=== PATIENT | female | born 1950 | race Caucasian/White ===

== ENCOUNTER 2017-01-28 11:14 | Emergency (ER) | payer MEDICAID ==
[~2017-01-28] VITALS: Ht 160 cm; Wt 76.7 kg
[~2017-01-28 11:14] MED LIST: BUPROPION HCL300 MG PO; CYCLOBENZAPRINE10 M1 PO; LISINOPRIL 10MG10 MG PO; OMEPRAZOLE40 MG PO
--- OUTSIDE RECORDS SUMMARY | 2017-01-28 11:23 | External Medical Summary Rpt | CCD ---
Author Author [facility] Organization [employer] Address Unknown Phone Unavailable Purpose Continuity of Care Document - through 2016
--- OUTSIDE RECORDS SUMMARY | 2017-01-28 11:23 | External Medical Summary Rpt | CCD ---
Author Author [facility] Address Unknown Phone Purpose Continuity of Care Document - through 2016
--- OUTSIDE RECORDS SUMMARY | 2017-01-28 11:23 | External Medical Summary Rpt | CCD ---
Demographics Preferred Language Swedish Marital Status Unknown Cheondoism Affiliation Unknown Race Unknown Ethnic Group Unknown Author Author , ELSA HUNTER Address Unknown Phone Immunization No patient found.
--- OUTSIDE RECORDS SUMMARY | 2017-01-28 11:23 | External Medical Summary Rpt | CCD ---
Demographics Preferred Language Italian Marital Status Unknown Hindu Affiliation Unknown Race Unknown Ethnic Group Unknown Author Author , ELSA HUNTER Address Unknown Phone Immunization No patient found.
--- OUTSIDE RECORDS SUMMARY | 2017-01-28 11:23 | External Medical Summary Rpt ---
Author Author [facility] Allen, [facility] Organization [facility] [employer] Address Unknown Phone Unavailable
--- NOTE | 2017-01-28 11:48 | Urgent Treatment Center Report ---
History of Present Issue Date/Time Seen by Provider 01/28/17 1143 Visit Reason Pt arrived:Walked Presenting Problem:PT STATES SHE FELL AT HOME OUTSIDE IN HER YARD, AND INJURED RT HAND, AND WRIST ALONG WITH LEFT FOREARM Location if Accident:Home Onset of symptoms date/time:01/23/1703/30/1200 or onset unknown for: Have you (or family members/close friends) recently traveled outside the [place]? N If Yes, where/when: Have you had exposure to infectious disease within the past month? TB? Other? Specify: Patient states that she was at home last working in her yard when she tripped and fell landing on her right hand and wrist and her left forearm State that she she noticed bruising and had some swelling but the area on her left forearm is now healing and she felt a knot in there State that she is also having pain in her right hand and wrist area when she moves it or tries to bear weight on it. State that her daughter made her come in and get checked ALLERGIES Coded Allergies: NO KNOWN ALLERGIES (12/04/14) Home Medications Reported Medications BUPROPION HCL (Bupropion XL) 300 MG PO DAILY #30 Omeprazole (Omeprazole 40MG) 40 MG PO DAILY #30 Cyclobenzaprine Hcl 10 MG PO DAILY #15 LISINOPRIL (Lisinopril) 10 MG PO DAILY History Medical History General CAD? No Angina: No MT: No Hypertension? Yes Hyperlipidemia? No CHF? No DVT? No PE? No COPD? No Asthma? No Anemia? No GERD? Yes Gastric ulcers? No GI Bleed? No Hernia? No Thyroid Problems? No Hypothyroidism? No CVA? No Seizures? No Diabetes? No Renal Insuffiency? No UTI? No Stones? No BPH? No GB Disease: No Nephritic Syndrome? No Asplenia? No Hepatitis? No Sickle Cell Disease? No Arthritis? No Migraines? No Cataracts? Yes Glaucoma? No MRSA? No HIV? No TB? No Anxiety? No Depression? No Cancer? No More? No Immunization HX Ped.Immunizations UTD No DT/Tetanus [id number] Surgical Hx Previous Surgery?Y KATHERYN CATARACTS REMOVED X3 L RETINA REPAIR Social History Smoking Hx Smoker: Never Smoker Tobacco: No Alcohol Alcohol: No Review of Systems All Other Systems Reviewed and Negative Comment Pain, swelling and light bruising to left forearm and right hand Physical Exam Vital Signs Vital Signs Date Time Temp Pulse Resp B/P Pulse O2 O2 Flow FiO2 Ox Delivery Rate 01/28 1246 98.1 93 20 135/78 100 01/28 1135 98.1 93 20 135/78 100 General Appearance normal appearance, WD/WN, no apparent distress Respiratory Status Yes: trachea midline, chest symmetrical, non tender chest. No: respiratory distress. Lung Sounds bilateral: normal breath sounds, lungs clear. Cardiovascular normal exam, regular rate/rhythm Extremities swelling, Mild swelling and healing bruising noted right hand/wrist and left forearm. Bruising yellowish green in color with small hard area noted in left forearm Neurologic alert, normal exam, oriented x 3 Medical Decision Making LABS/Meds/Orders Pt receiving controlled substance in ED? No Results/Orders Orders Procedure Date/time Status UTC STABILIZE JOINT/AREA 01/28 1231 Active WRIST-3 VIEWS-RT 01/28 1144 Active HAND-RT 3 VIEWS 01/28 1144 Active FOREARM-LT 01/28 1144 Active FOREARM-RT 01/28 UNK Active XRAY/CT/US XRAY/CT/US XRAY forearm, hand, wrist XR interpretation by reviewed by me Xray Results no fracture seen Comment Patiernt informed that radiologist would do official read and if he seen anything different than provider we would call her and inform her of finding Departure Departure Time of Disposition 1214 Disposition DC Home or Self Care(routine) Clinical Impression Primary Impression: Wrist sprain Qualifiers: Encounter type: initial encounter Laterality: right Qualified Code: S63.501A - Unspecified sprain of right wrist, initial encounter Secondary Impressions: Forearm sprain Qualifiers: Encounter type: initial encounter Laterality: left Qualified Code: S63.502A - Unspecified sprain of left wrist, initial encounter Condition STABLE Referrals ROSA ELOMRE (Family) Fredo WEISS,Dilan OLIVO MD, ROBBY GIRON Patient Instructions How To Perform RICE (Rest, Ice, Compress, Elevate) Additional Instructions *RICE, Rest the extremity, Ice 15-20 minutes 3-4 times daily, Compress- wear the lalo wrap as discussed as much as possible to help reduce swelling and pain, Elevate the extremity when at rest *Lalo wrap is for support and help control swelling, use it except in the shower. Be sure that is not to tight but not to loose either *Elevate when resting *Ibuprofen 600-800mg every 6-8 hours as needed for pain an inflammation. If need something more can take Tylenol in between doses of Ibuprofen to help Immediately follow up for new or worsening of symptoms, or no noticeable improvement over the next 3-5 days Discharge Counseling Counseled pt/family regarding diagnosis, test results, medications/RX, home care, follow up needs Prescriptions Current Visit Scripts Ibuprofen (Ibuprofen 800MG) 800 MG PO QIDP PRN pain #30 TAB at 7301
[2017-01-28] MEDS ORDERED: IBUPROFEN800 MG PO (12:16)
[2017-01-28 12:46] VITALS: BP 135/78
--- NOTE | 2017-01-28 15:17 | RADIOLOGY REPORT PS360 ---
FOREARM-RT HISTORY: FALL, PAIN ORDERING PHYSICIAN: TEMO JOHNSON APRN PATIENT AGE: 66 years COMPARISON: None FINDINGS: No obvious fracture, dislocation, lytic change or blastic change. Normal mineralization. Unremarkable soft tissues IMPRESSION: Negative forearm
--- NOTE | 2017-01-28 15:26 | RADIOLOGY REPORT PS360 ---
HAND-RT 3 VIEWS HISTORY: Pain following injury FELL AT HOME YESTERDAY ORDERING PHYSICIAN: TEMO JOHNSON APRN PATIENT AGE: 66 years COMPARISON: None FINDINGS: No fracture or dislocation. No lytic or blastic change. There is normal mineralization. The joint spaces are well-preserved. No significant degenerative/arthritic changes. No erosive changes evident. IMPRESSION: Negative, no acute finding
--- NOTE | 2017-01-28 15:27 | RADIOLOGY REPORT PS360 ---
FOREARM-LT CLINICAL INDICATION: Pain following injury FELL AT HOME YESTERDAY ORDERING PHYSICIAN: TEMO JOHNSON APRN PATIENT AGE: 66 years COMPARISON: None FINDINGS: No fracture, dislocation, or other significant anomalies evident. IMPRESSION: No acute finding
--- NOTE | 2017-01-28 15:27 | RADIOLOGY REPORT PS360 ---
WRIST-3 VIEWS-RT HISTORY: Pain following injury FELL AT HOME YESTERDAY ORDERING PHYSICIAN: TEMO JOHNSON APRN PATIENT AGE: 66 years COMPARISON: None FINDINGS: No fracture or dislocation. No lytic or blastic change. There is normal mineralization.. The joint spaces are well-preserved. No significant degenerative/arthritic changes. No erosive changes evident.. IMPRESSION: Negative wrist
== END 2017-01-28 12:47 | disposition home or self-care (01) ==
LOC: UTC 11:14
DX: S63.501A Unspecified sprain of right wrist, initial encounter (principal); S63.502A Unspecified sprain of left wrist, initial encounter; W01.0XXA Fall on same level from slipping, tripping and stumbling without subsequent striking against object, initial encounter; I10 Essential (primary) hypertension; K21.9 Gastro-esophageal reflux disease without esophagitis; Y93.89 Activity, other specified; Y92.007 Garden or yard of unspecified non-institutional (private) residence as the place of occurrence of the external cause; Z79.899 Other long term (current) drug therapy